=== PATIENT | female | born 1975 | race Caucasian/White ===

== ENCOUNTER 2017-04-03 03:24 | Inpatient (IN) | payer OTHER ==
[2017-04-03] MEDS ORDERED: KETOROLAC TROMETHAMINE INJ/PF 30 MG/1 ML SDV IV ONE (03:58)
[2017-04-03] MEDS ORDERED: MORPHINE SULFATE 10 MG/ML INJ IV ONE (03:58)
[2017-04-03] MEDS ORDERED: NORMAL SALINE 1000 ML 1,000 ML IV ONE (03:59)
--- NOTE | 2017-04-03 04:00 | ER Document Report ---
ED General <PERRY FELDER - Last Filed: 04/03/17 05:43> - General TRAVEL OUTSIDE OF THE [place] IN LAST 30 DAYS: No <ISABEL SALAZAR - Last Filed: 04/03/17 06:36> - General Stated Complaint: ABDOMINAL PAIN Time Seen by Provider: 04/03/17 03:33 Notes: Patient is a 41-year-old female that comes by EMS for chief complaint of sudden onset of left flank and left mid upper abdominal pain that started just prior to arrival. She reports nausea but denies vomiting. She denies fever or chills. She also states that she has a numbness in her left arm with pain in her left arm. She denies any trauma. She does have a past medical history of kidney stones. PMH of gastric bypass and cholecystectomy. Only daily medications or vitamins reportedly. at bedside. (ISABEL SALAZAR) - Related Data Allergies/Adverse Reactions: Penicillins Allergy (Severe, Verified 11/09/13 14:01) difficulting breathing, hives Past Medical History - General Information source: Patient - Social History Smoking Status: Never Smoker Frequency of alcohol use: None Drug Abuse: None Lives with: Family Family History: Reviewed & Not Pertinent - Past Medical History Cardiac Medical History: Reports: Hx Hypercholesterolemia, Hx Hypertension Renal/ Medical History: Reports: Hx Kidney Stones GI Medical History: Reports: Hx Gastroesophageal Reflux Disease Past Surgical History: Reports: Hx Cholecystectomy, Hx Gastric Bypass Surgery - Immunizations Hx Diphtheria, Pertussis, Tetanus Vaccination: Yes <ISABEL SALAZAR - Last Filed: 04/03/17 06:36> Review of Systems - Review of Systems Constitutional: No symptoms reported EENT: No symptoms reported Cardiovascular: No symptoms reported Respiratory: No symptoms reported Gastrointestinal: See HPI Genitourinary: See HPI Female Genitourinary: No symptoms reported Musculoskeletal: No symptoms reported Skin: No symptoms reported Hematologic/Lymphatic: No symptoms reported Neurological/Psychological: No symptoms reported <ISABEL SALAZAR - Last Filed: 04/03/17 06:36> Physical Exam - Vital signs Interpretation: Normal - General General appearance: Anxious In distress: Moderate - HEENT Head: Normocephalic, Atraumatic Eyes: Normal Pupils: PERRL - Respiratory Respiratory status: No respiratory distress Chest status: Nontender Breath sounds: Normal Chest palpation: Normal - Cardiovascular Rhythm: Regular Heart sounds: Normal auscultation Murmur: No - Abdominal Inspection: Normal Distension: No distension Bowel sounds: Normal Tenderness: Tender - Tender in the left abdomen generally, right abdomen is nontender, there is guarding but it is still nonspecific with generalized area Organomegaly: No organomegaly - Back Back: Tender - Tender over the left CVA area generally, right CVA area is nontender - Extremities General upper extremity: Normal inspection, Nontender, Normal ROM, Normal strength General lower extremity: Normal inspection, Nontender, Normal ROM, Normal strength - Neurological Neuro grossly intact: Yes Cognition: Normal Orientation: AAOx4 Marion Coma Scale Eye Opening: Spontaneous Waldron Coma Scale Verbal: Oriented Marion Coma Scale Motor: Obeys Commands Waldron Coma Scale Total: 15 Speech: Normal Motor strength normal: LUE, RUE, LLE, RLE Sensory: Normal - Psychological Associated symptoms: Agitated - Skin Skin Temperature: Warm Skin Moisture: Dry Skin Color: Normal <ISABEL SALAZAR - Last Filed: 04/03/17 06:36> - Vital signs Vitals: Temp Pulse Resp BP Pulse Ox 97.5 F 98 18 132/86 H 100 04/03/17 03:24 04/03/17 03:24 04/03/17 03:24 04/03/17 03:24 04/03/17 03:24 Course - Laboratory Result Diagrams: 04/03/17 03:50 04/03/17 03:50 <PERRY FELDER - Last Filed: 04/03/17 05:43> - Laboratory Result Diagrams: 04/03/17 03:50 04/03/17 03:50 <ISABEL SALAZAR - Last Filed: 04/03/17 06:36> - Re-evaluation Re-evalutation: 04/03/17 05:43 Patient initially seen by physician's botany laboratory assistant. Radiologist: Said there is free air or free fluid in the abdomen. I did go evaluate the patient immediately. She has no pain to palpation of the rest of her abdomen. She has large amount of pain to palpation of the left side of her abdomen. She does have a history of gastric bypass surgery. She denies any fevers. The pain came on suddenly tonight. We will call the surgeon immediately. We will give her antibiotics. She will be placed on monitor. We will treat her pain until surgery can come evaluate help. (PERRY FELDER) Patient initially very uncomfortable, after morphine and Toradol she is much more comfortable although not completely asymptomatic. She has generalized tenderness in her left abdomen, she also has tenderness over the left CVA area. CBC, chemistry unremarkable, urinalysis with no wendie hematuria or infection. Because of patient's large amount of pain and symptoms CAT scan will be performed to further evaluate. CAT scan showing free air in the abdomen concerning for perforated viscus. Dr. Felder evaluated patient at bedside. She is becoming more uncomfortable again on reevaluation. Given additional pain medication, giving Levaquin and Flagyl with penicillin allergy, will consult surgery. 04/03/17 Dr. Friedman evaluated patient at bedside, recommends emergent surgery. They did discuss transfer to [place] but decision was made for surgery here. Patient and state agreement with this plan. 04/03/17 06:30 Patient reevaluated again at bedside, she is much more comfortable although she still has some pain. She will be going straight to the operating room. (ISABEL SALAZAR) - Vital Signs Vital signs: Temp Pulse Resp BP Pulse Ox 97.5 F 98 15 92/60 L 100 04/03/17 03:24 04/03/17 03:24 04/03/17 06:00 04/03/17 06:01 04/03/17 06:00 - Laboratory Laboratory results interpreted by me: 04/03/17 04/03/17 04/03/17 03:50 03:50 04:35 Hgb 11.1 L Hct 34.2 L MCV 79 L MCH 25.7 L RDW 17.5 H Chloride 108 H Urine Blood SMALL H Ur Leukocyte Esterase MODERATE H Discharge <PERRY FELDER - Last Filed: 04/03/17 05:43> - Discharge Admitting Provider: Surgicalist Unit Admitted: OR <ISABEL SALAZAR - Last Filed: 04/03/17 06:36> - Discharge Clinical Impression: Perforated abdominal viscus Condition: Critical Disposition: ADMITTED INPATIENT
[2017-04-03 04:10] LABS: ABSOLUTE EOSINOPHILS # (AUTO) 0.3 10^3/uL (0.0-0.6); ABSOLUTE LYMPHOCYTES (AUTO) 2.6 10^3/uL (0.5-4.7); ABSOLUTE MONOCYTES (AUTO) 0.4 10^3/uL (0.1-1.4); ABSOLUTE NEUT (AUTO) 2.5 10^3/uL (1.7-8.2); BASOPHILS % (AUTO) 0.6 % (0-2); EOSINOPHILS % (AUTO) 5.3 % (0-6); HEMATOCRIT 34.2 % (36.0-47.0); HEMOGLOBIN 11.1 g/dL (12.0-15.5); LYMPHOCYTES % (AUTO) 44.3 % (13-45); MEAN CORPUSCULAR HEMOGLOBIN 25.7 pg (27.0-33.4); MEAN CORPUSCULAR HGB CONC 32.3 g/dL (32.0-36.0); MEAN CORPUSCULAR VOLUME 79 fl (80-97); MONOCYTES % (AUTO) 7.1 % (3-13); PLATELET COUNT 245 10^3/uL (150-450); RED BLOOD COUNT 4.31 10^6/uL (3.72-5.28); RED CELL DISTRIBUTION WIDTH 17.5 % (11.5-14.0); SEGMENTED NEUTROPHILS % (AUTO) 42.7 % (42-78); TOTAL CELLS COUNTED % (AUTO) 100 %; WHITE BLOOD COUNT 5.8 10^3/uL (4.0-10.5)
[2017-04-03 04:30] LABS: ALANINE AMINOTRANSFERASE 25 U/L (9-52); ALBUMIN 3.7 g/dL (3.5-5.0); ALKALINE PHOSPHATASE 66 U/L (38-126); ANION GAP 7 (5-19); ASPARTATE AMINO TRANSFERASE 22 U/L (14-36); BILIRUBIN,DIRECT 0.2 mg/dL (0.0-0.4); BILIRUBIN,TOTAL 0.3 mg/dL (0.2-1.3); BLOOD UREA NITROGEN 9 mg/dL (7-20); CALCIUM 8.8 mg/dL (8.4-10.2); CARBON DIOXIDE 26 mmol/L (22-30); CHLORIDE 108 mmol/L (98-107); GLUCOSE 90 mg/dL (75-110); POTASSIUM 4.6 mmol/L (3.6-5.0); SODIUM 141.3 mmol/L (137-145); TOTAL PROTEIN 6.4 g/dL (6.3-8.2)
[2017-04-03 04:54] LABS: AMORPHOUS SEDIMENT,URINE TRACE /HPF; APPEARANCE,URINE SLIGHTLY-CLOUDY; BILIRUBIN,URINE NEGATIVE (NEGATIVE); COLOR,URINE YELLOW; GLUCOSE, URINE NEGATIVE (NEGATIVE); KETONES,URINE NEGATIVE (NEGATIVE); LEUKOCYTE ESTERASE,URINE MODERATE (NEGATIVE); NITRITE,URINE NEGATIVE (NEGATIVE); PROTEIN,URINE NEGATIVE (NEGATIVE); URINE SPECIFIC GRAVITY 1.009; UROBILINOGEN,URINE NEGATIVE mg/dL (<2.0)
[2017-04-03] MEDS ORDERED: LEVOFLOXACIN 750 MG/D5W RTU 750 MG/150 ML RTUPB IV ONE (05:43)
[2017-04-03] MEDS ORDERED: METRONIDAZOLE 500 MG/NS RTU 100 ML IV ONE (05:43)
--- NOTE | 2017-04-03 05:45 | RADIOLOGY REPORT (SQ) ---
EXAM DESCRIPTION: CT LTD RENAL STONE PROTOCOL ON COMPLETED DATE/TIME: 04/03/2017 5:18 am REASON FOR STUDY: left flank pain, abd pain COMPARISON: None. TECHNIQUE: CT scan of the abdomen and pelvis performed without intravenous or oral contrast. Images reviewed with lung, soft tissue, and bone windows. Reconstructed coronal and sagittal MPR images revi ewed. All images stored on PACS. All CT scanners at this facility use dose modulation, iterative reconstruction, and/or weight based d osing when appropriate to reduce radiation dose to as low as reasonably achievable (ALARA). [facility]: Dose Right [facility]: CareDose [facility]: Dose Right [facility]: Teradose 4D [facility]: Smart Tactiga RADIATION DOSE: Up-to-date CT equipment and radiation dose reduction techniques were employed. CTDIv ol: 11.1 mGy. DLP: 597 mGy-cm.mGy. LIMITATIONS: None. FINDINGS: LOWER CHEST: No significant findings. No nodules or infiltrates. NON-CONTRASTED LIVER, SPLEEN, ADRENALS: Evaluation limited by lack of IV contrast. No identified sign ificant masses. PANCREAS: No masses. No peripancreatic inflammatory changes. GALLBLADDER: Surgically absent. RIGHT KIDNEY AND URETER: No suspicious masses. Assessment limited by lack of IV contrast. No signif icant calcifications. No hydronephrosis or hydroureter. LEFT KIDNEY AND URETER: No suspicious masses. Assessment limited by lack of IV contrast. No signifi cant calcifications. No hydronephrosis or hydroureter. AORTA AND RETROPERITONEUM: No aneurysm. No retroperitoneal masses or adenopathy. BOWEL AND PERITONEAL CAVITY: Prior gastric bypass. There is generalize free intraperitoneal air. Et iology not determined. APPENDIX: Normal. PELVIS, BLADDER, AND ABDOMINAL WALL:No abnormal masses. No free fluid. Bladder normal. BONES: No significant findings. OTHER: No other significant finding. IMPRESSION: Free intraperitoneal air. Suggests perforated viscus. Fluid around the liver and generally in the pelvis. COMMENT: Pertinent findings on the imaging study reported as a CRITICAL RESULT to weiner at05:39 o n 04/03/2017. Category of Critical Result: Free intraperitoneal air. Quality ID # [id number]: Final reports with documentation of one or more dose reduction techniques (e.g., Au tomated exposure control, adjustment of the mA and/or kV according to patient size, use of iterative reconstruction technique) TECHNICAL DOCUMENTATION: JOB ID: [id number] [facility] [employer]- All Rights Reserved
[2017-04-03] MEDS ORDERED: HYDROMORPHONE HCL INJ/PF 2 MG/ML AMPULE IV ONE (05:48)
[2017-04-03] MEDS ORDERED: ONDANSETRON HCL INJ/PF 4 MG/2 ML SDV IV ONE (06:04)
[2017-04-03] MEDS ORDERED: PROPOFOL INJ 200 MG/20 ML VIAL IV ONE (06:34)
[2017-04-03] MEDS ORDERED: MIDAZOLAM 2 MG/2 ML INJ ONE (06:34)
[2017-04-03] MEDS ORDERED: IBUPROFEN INJ 800 MG/8 ML VIAL IV ONE (06:34)
[2017-04-03] MEDS ORDERED: FENTANYL CITRATE INJ/PF 250 MCG/5 ML AMPULE ONE (06:34)
[2017-04-03] MEDS ORDERED: ACETAMINOPHEN 100 ML IV ONE (06:34)
[2017-04-03] MEDS ORDERED: HYDROMORPHONE HCL INJ/PF 2 MG/ML AMPULE ONE ×2 (06:35→10:30)
--- NOTE | 2017-04-03 06:40 | PDOC H&P ---
History of Present Illness Admission Date/PCP: 04/03/2017 Patient complains of: Severe diffuse abdominal pains History of Present Illness: KEENA GOMEZ is a 41 year old female Patient woke up at 230 this morning with severe abdominal pains with nausea. She immediately went to the emergency room where a CAT scan of the abdomen was done which showed free air likely from a perforated bowel. Unfortunately the radiologist unable to localize the site of the perforation. Past Medical History Cardiac Medical History: Reports: Hyperlipidema, Hypertension GI Medical History: Reports: Gastroesophageal Reflux Disease Hematology: Denies: Anemia Past Surgical History Past Surgical History: Reports: Cholecystectomy, Gastric Bypass Surgery Social History Smoking Status: Never Smoker Frequency of Alcohol Use: Occasional Hx Recreational Drug Use: No Family History Family History: Reviewed & Not Pertinent Parental Family History Reviewed: Yes - Both parents due to [place] Children Family History Reviewed: No Sibling(s) Family History Reviewed.: No Medication/Allergy Home Medications: Hydrochlorothiazide 25 mg PO DAILY 11/09/13 Simvastatin [Zocor 20 mg Tablet] 20 mg PO QHS 11/09/13 Methocarbamol [Robaxin 750 mg Tablet] 750 mg PO ASDIR PRN #40 tablet 11/10/13 Oxycodone HCl/Acetaminophen [Percocet 5-325 mg Tablet] 1 - 2 tab PO Q4H PRN #25 tablet 11/10/13 Ondansetron [Zofran Odt 4 mg Tablet] 1 - 2 tab PO Q4H PRN #10 tab.rapdis Oxycodone HCl/Acetaminophen [Percocet 5-325 mg Tablet] 1 - 2 tab PO Q4H PRN #15 tablet 05/03/15 Allergies/Adverse Reactions: Penicillins Allergy (Severe, Verified 11/09/13 14:01) difficulting breathing, hives Review of Systems Constitutional: PRESENT: other - Denies any fever or chills. Eyes: PRESENT: other - No visual or hearing problems Cardiovascular: PRESENT: other - Denies any chest pain Respiratory: PRESENT: other - Denies short of breath Gastrointestinal: PRESENT: as per HPI - Has severe diffuse abdominal pains with nausea Genitourinary: PRESENT: other - No dysuria Musculoskeletal: PRESENT: other - No joint pain Integumentary: PRESENT: other - No rash Neurological: PRESENT: other - No seizure disorder Endocrine: PRESENT: other - Polyuria no polydipsia Hematologic/Lymphatic: PRESENT: other - No easy bruisability or lymphadenopathy Physical Exam Vital Signs: Temp Pulse Resp BP Pulse Ox 97.5 F 98 15 92/60 L 100 04/03/17 03:24 04/03/17 03:24 04/03/17 06:00 04/03/17 06:01 04/03/17 06:00 Intake & Output 04/01/17 04/02/17 04/03/17 06:59 06:59 06:59 Weight 70.307 kg General appearance: PRESENT: severe distress Head exam: PRESENT: atraumatic, normocephalic Eye exam: PRESENT: conjunctiva pink Ear exam: PRESENT: normal external ear exam Mouth exam: PRESENT: moist, tongue midline Neck exam: PRESENT: full ROM Respiratory exam: PRESENT: clear to auscultation danica Cardiovascular exam: PRESENT: tachycardia Pulses: PRESENT: normal carotid pulses Vascular exam: PRESENT: normal capillary refill GI/Abdominal exam: PRESENT: soft, tenderness - Diffuse abdominal tenderness patient felt more comfortable lying on her right side. Patient unable to completely lie flat on her back because of severe pains Rectal exam: PRESENT: deferred Extremities exam: PRESENT: other - No edema Musculoskeletal exam: PRESENT: full ROM Neurological exam: PRESENT: alert, oriented to person, oriented to place, oriented to time, oriented to situation, CN II-XII grossly intact Psychiatric exam: PRESENT: appropriate affect Skin exam: PRESENT: dry, normal color, warm Results Laboratory Results: 04/03/17 03:50 04/03/17 03:50 04/03/17 04/03/17 04/03/17 03:50 03:50 04:35 WBC 5.8 RBC 4.31 Hgb 11.1 L Hct 34.2 L MCV 79 L MCH 25.7 L MCHC 32.3 RDW 17.5 H Plt Count 245 Seg Neutrophils % 42.7 Lymphocytes % 44.3 Monocytes % 7.1 Eosinophils % 5.3 Basophils % 0.6 Absolute Neutrophils 2.5 Absolute Lymphocytes 2.6 Absolute Monocytes 0.4 Absolute Eosinophils 0.3 Absolute Basophils 0.0 Sodium 141.3 Potassium 4.6 Chloride 108 H Carbon Dioxide 26 Anion Gap 7 BUN 9 Creatinine 0.85 Est GFR ( Amer) > 60 Est GFR (Non-Af Amer) > 60 Glucose 90 Calcium 8.8 Total Bilirubin 0.3 AST 22 ALT 25 Alkaline Phosphatase 66 Total Protein 6.4 Albumin 3.7 Urine Color YELLOW Urine Appearance SLIGHTLY-CLOUDY Urine pH 7.0 Ur Specific Maskell 1.009 Urine Protein NEGATIVE Urine Glucose (UA) NEGATIVE Urine Ketones NEGATIVE Urine Blood SMALL H Urine Nitrite NEGATIVE Ur Leukocyte Esterase MODERATE H Urine WBC (Auto) 1 04/03/17 03:50 Troponin I < 0.012 Impressions: Limited or Localized CT 04/03/17 03:59 IMPRESSION: Free intraperitoneal air. Suggests perforated viscus. Fluid around the liver and generally in the pelvis. Assessment & Plan - Time Time Spent: 30 to 50 Minutes - Inpatient Certification Medical Necessity: Need for Pain Control, Need for IV Antibiotics, Need for Surgery - Plan Summary Plan Summary: #1 patient is being hydrated and started on IV antibiotics 2. Patient for exploratory laparotomy and repair of perforation and possible colostomy. This was explained to the patient and her and risks mentioned such as bleeding, infection, bowel injury and risk of anesthesia among other things
[2017-04-03] MEDS ORDERED: FENTANYL CITRATE INJ/PF 100 MCG/2 ML AMPUL IV PRN ×3 (08:44)
[2017-04-03] MEDS ORDERED: MEPERIDINE HCL/PF INJ 25 MG/1 ML DISP.SYRIN IV PRN (08:44)
[2017-04-03] MEDS ORDERED: ONDANSETRON HCL INJ/PF 4 MG/2 ML SDV IV PRN (08:44)
[2017-04-03] MEDS ORDERED: OXYCODONE-ACETAMINOPHEN 5-325 MG TABLET PO PRN ×2 (08:44)
[2017-04-03] MEDS ORDERED: PROMETHAZINE HCL INJ 25 MG/1 ML VIAL IV PRN ×2 (08:44)
[2017-04-03] MEDS ORDERED: MORPHINE SULFATE 10 MG/ML INJ IV PRN (08:44)
[2017-04-03] MEDS ORDERED: DIPHENHYDRAMINE HCL 50 MG/ML VIAL IV PRN (08:44)
[2017-04-03] MEDS ORDERED: ROCURONIUM BROMIDE INJ 50 MG/5 ML VIAL IV ONE (08:57)
[2017-04-03] MEDS ORDERED: PHENYLEPHRINE HCL INJ/PF 10 MG/1 ML SDV ONE (08:57)
[2017-04-03] MEDS ORDERED: SUCCINYLCHOLINE CHLORIDE INJ 200 MG/10 ML VIAL ONE (08:57)
[2017-04-03] MEDS ORDERED: ONDANSETRON HCL INJ/PF 4 MG/2 ML SDV ONE (08:57)
[2017-04-03] MEDS ORDERED: LIDOCAINE 2% INJ-PF (20 MG/ML) 10 ML AMPUL ONE (08:57)
[2017-04-03] MEDS ORDERED: DEXAMETHASONE SOD PHOSPHATE INJ 4 MG/1 ML VIAL ONE (08:57)
[2017-04-03] MEDS ORDERED: DEXTROSE 50%-WATER 25 GM/50 ML DISP.SYRIN IV PRN ×2 (09:43)
[2017-04-03] MEDS ORDERED: DEXTROSE 40% GEL 15 GM TUBE PO PRN ×2 (09:43)
[2017-04-03] MEDS ORDERED: GLUCAGON,HUMAN RECOMB 1 MG INJ SUBCUT PRN (09:43)
[2017-04-03] MEDS ORDERED: PHARMACY COMMUNICATION ORDER MC NR (10:00)
--- NOTE | 2017-04-03 11:13 | OPERATIVE REPORT E ---
Operative Report NAME: KEENA GOMEZ : 1975 AGE: 41Y DATE OF SURGERY: ROOM: 601 PREOPERATIVE DIAGNOSIS: PERFORATED BOWEL WITH PERITONITIS. POSTOPERATIVE DIAGNOSIS: PERFORATED JEJUNAL ULCER AT THE JUNCTION OF THE GASTROJEJUNAL ANASTOMOSIS WITH PERITONITIS. OPERATION: Exploratory laparotomy, repair of perforated jejunal ulcer with omental patch. SURGEON: JAMAL WEATHERS M.D. ANESTHESIA: General. INDICATION: This is a 41-year-old female post gastric bypass, complained of severe diffuse abdominal pain around 11:00 last night. She went to the Emergency Room where a CAT scan of the abdomen revealed a perforated bowel. Unfortunately, unable to identify the potential source. Patient was then taken to the OR immediately. PROCEDURE: After adequate general anesthesia, the abdomen was then prepped and draped in the usual sterile fashion. Appropriate timeout was called. Next, a midline incision made from the xiphoid down to just below the umbilicus. Abdominal cavity was then entered and there was a lot of purulent material noted along the right upper quadrant area. This was then suctioned out, but fortunately, no evidence of inflammation around this site where the site of the duodenum is. There were omental adhesions to the liver that were taken down with the use of Harmonic roni. Next, there was some light purulent material in the right lower quadrant and the incision was then extended further down and just above the symphysis pubis and this area was then irrigated and, again, no evidence of perforation, but there was a considerable amount of purulent material and exudate. Exudate was sent for C and S. Next, the left lower quadrant was checked and, again, no evidence of any inflammation or perforation at this site. Finally, in the left upper quadrant, an area that appeared to be at the junction of the gastrojejunal anastomosis, there was a perforation, appeared to be the jejunal side, which was partly plastered to the liver. The perforation roughly measured about 1 cm. Next, this area was closed with interrupted 2-0 silk sutures. About 4 sutures were placed. Next, omentum was sutured around it using 2-0 Vicryl sutures. An NG tube was placed in the jejunum of the gastrojejunal anastomosis. Next, the abdominal cavity was then irrigated copiously with about 6L of saline. The small bowel was checked from the ligament of Treitz to the ileocecal valve and no evidence of abnormality. Also, the large bowel was also inspected and no evidence of abnormality other than the cecum was widely dilated to about 8 cm. Appendix was left intact. No evidence of inflammation at this site. Next, the fascia was then closed with running suture using #1 PDS, starting at both ends of the incision and tied just above the umbilicus. The subcutaneous was then irrigated with saline solution and surgical gloves were changed. Next, the skin was then closed with funmilayo. Sterile dressings placed over the operating site. Prior to closure of the fascia, a Juan David-Lawson drain was brought out through the left upper quadrant and placed near the area of the perforation. Drain was anchored to the skin with 3-0 Prolene. After the funmilayo were placed, sterile dressings were placed on top of the incision. Needle, instrument and sponge counts were all correct, and estimated blood loss about 200 mL. The patient tolerated the procedure well and brought to the intensive care unit in guarded condition. DICTATING PHYSICIAN: JAMAL WEATHERS M.D. [id number] PHY#: [id number] ID: [id number] JOB#: [id number] ACCT: [id number] cc:JAMAL WEATHERS M.D. > MTDD
[2017-04-03] MEDS: METRONIDAZOLE 500 MG/NS RTU 100 ML IV SCH ×3 (11:29→23:58)
[2017-04-03] MEDS: FAMOTIDINE INJ/PF 20 MG/2 ML SDV IV SCH ×2 (11:29→22:32)
[2017-04-03] MEDS: ENOXAPARIN SODIUM INJ 40 MG/0.4 ML DISP.SYRIN SUBCUT SCH (11:30)
--- NOTE | 2017-04-03 11:41 | EKG REPORT ---
SEVERITY:- NORMAL ECG - SINUS RHYTHM : Confirmed by: Gio Valdez 03-Apr-2017 11:41:31
[2017-04-03] MEDS ORDERED: INFLUENZA ADLT QUAD (36MOS+) 2017-18 VAC 0.5 ML SYR IM PRN (12:48)
[2017-04-03] MEDS: HYDROMORPHONE HCL INJ/PF 2 MG/ML AMPULE IV PRN ×2 (14:24→19:39)
--- NOTE | 2017-04-03 15:47 | RADIOLOGY REPORT (SQ) ---
EXAM DESCRIPTION: KUB/ABDOMEN (SINGLE VIEW) COMPLETED DATE/TIME: 04/03/2017 2:31 pm REASON FOR STUDY: Check Placement of NG Tube COMPARISON: CT abdomen pelvis 04/03/2017 NUMBER OF VIEWS: One view. TECHNIQUE: Supine radiographic image of the abdomen acquired. LIMITATIONS: None. FINDINGS: BOWEL GAS PATTERN: Grossly nonobstructive bowel gas pattern. Moderate stool in the ascend ing colon. CALCIFICATIONS: No suspicious calcifications. SOFT TISSUES: No gross mass or suggestion of organomegaly. HARDWARE: Remote prior gastric bypass with left upper quadrant surgical funmilayo. There is a nasogast tyler tube with the tip likely in the gastric fundal pouch and side port at the GE junction. Left uppe r quadrant Juan David-Lawson drain. Midline anterior abdominal skin funmilayo. Clips post remote prior ch olecystectomy. BONES: No acute fracture. No worrisome bone lesions. OTHER: No other significant finding. IMPRESSION: Nasogastric tube tip in the stomach, side port at the GE junction Left upper quadrant Juan David-Lawson drain Grossly nonobstructive bowel gas pattern with moderate stool in the ascending colon Old gastric bypass and cholecystectomy TECHNICAL DOCUMENTATION: JOB ID: [id number] [employer]- All Rights Reserved
[2017-04-03] MEDS: NORMAL SALINE 1000 ML 1,000 ML IV PRN (16:04)
[2017-04-03] MEDS: ONDANSETRON HCL INJ/PF 4 MG/2 ML SDV IV PRN (17:20)
[2017-04-04] MEDS: HYDROMORPHONE HCL INJ/PF 2 MG/ML AMPULE IV PRN ×2 (00:31→08:00)
[2017-04-04 04:16] LABS: ABSOLUTE MONOCYTES (AUTO) 0.7 10^3/uL (0.1-1.4); BASOPHILS % (AUTO) 0.2 % (0-2); EOSINOPHILS % (AUTO) 0.3 % (0-6); HEMOGLOBIN 10.1 g/dL (12.0-15.5); LYMPHOCYTES % (AUTO) 9.3 % (13-45); MEAN CORPUSCULAR HEMOGLOBIN 25.7 pg (27.0-33.4); MEAN CORPUSCULAR HGB CONC 32.5 g/dL (32.0-36.0); MEAN CORPUSCULAR VOLUME 79 fl (80-97); MONOCYTES % (AUTO) 6.9 % (3-13); PLATELET COUNT 191 10^3/uL (150-450); RED BLOOD COUNT 3.92 10^6/uL (3.72-5.28); RED CELL DISTRIBUTION WIDTH 17.2 % (11.5-14.0); SEGMENTED NEUTROPHILS % (AUTO) 83.3 % (42-78); TOTAL CELLS COUNTED % (AUTO) 100 %; WHITE BLOOD COUNT 10.9 10^3/uL (4.0-10.5)
[2017-04-04 04:29] LABS: ALANINE AMINOTRANSFERASE 45 U/L (9-52); ALBUMIN 2.8 g/dL (3.5-5.0); ALKALINE PHOSPHATASE 50 U/L (38-126); ANION GAP 9 (5-19); ASPARTATE AMINO TRANSFERASE 32 U/L (14-36); BILIRUBIN,DIRECT 0.2 mg/dL (0.0-0.4); BILIRUBIN,TOTAL 0.4 mg/dL (0.2-1.3); BLOOD UREA NITROGEN 10 mg/dL (7-20); CALCIUM 8.3 mg/dL (8.4-10.2); CARBON DIOXIDE 23 mmol/L (22-30); CHLORIDE 110 mmol/L (98-107); GLUCOSE 101 mg/dL (75-110); LIPASE 35.8 U/L (23-300); SODIUM 141.7 mmol/L (137-145); TOTAL PROTEIN 5.1 g/dL (6.3-8.2)
[2017-04-04] MEDS: METRONIDAZOLE 500 MG/NS RTU 100 ML IV SCH ×4 (05:30→23:32)
[2017-04-04] MEDS: LEVOFLOXACIN 750 MG/D5W RTU 750 MG/150 ML RTUPB IV SCH (05:31)
[2017-04-04] MEDS: ONDANSETRON HCL INJ/PF 4 MG/2 ML SDV IV PRN (08:00)
[2017-04-04] MEDS: FAMOTIDINE INJ/PF 20 MG/2 ML SDV IV SCH ×2 (09:43→21:15)
[2017-04-04] MEDS: ENOXAPARIN SODIUM INJ 40 MG/0.4 ML DISP.SYRIN SUBCUT SCH (09:44)
[2017-04-04] MEDS: KETOROLAC TROMETHAMINE INJ/PF 30 MG/1 ML SDV IV PRN ×2 (09:49→17:27)
[2017-04-04] MEDS ORDERED: SUMATRIPTAN SUCCINATE 50 MG TABLET PO PRN (11:28)
[2017-04-04] MEDS: PROMETHAZINE HCL INJ 25 MG/1 ML VIAL IV PRN (12:07)
[2017-04-04] MEDS: NORMAL SALINE 1000 ML 1,000 ML IV PRN (15:42)
--- NOTE | 2017-04-04 20:11 | PDOC PROGRESS REPORT ---
Subjective Progress Note for:: 04/04/17 Subjective:: #1 patient does not have the same pains that she had prior to surgery. She does have some mild incisional pains. She is more concerned about her headaches which she usually takes Imitrex for this. I asked the nurse if they can have a Imitrex available so this can be given to the patient. Physical Exam Vital Signs: Temp Pulse Resp BP Pulse Ox 97.7 F 102 H 18 117/79 100 04/04/17 08:00 04/04/17 08:00 04/04/17 18:24 04/04/17 18:24 04/04/17 18:24 Intake & Output 04/03/17 04/04/17 04/05/17 07:59 06:59 06:59 Intake Total 1657 Output Total 1540 Balance 117 Weight General appearance: PRESENT: no acute distress Exam: She remains afebrile. Her abdomen remains soft with minimal tenderness. Incision dressing is clean and dry. The NG tube and drains a small amount of fluid. 2. Continue with IV antibiotic therapy. 3. If she continues to be stable she can be transferred to the IMCU. Results Laboratory Results: 04/04/17 04:06 04/04/17 04:06 04/04/17 04/04/17 04:06 04:06 WBC 10.9 H RBC 3.92 Hgb 10.1 L Hct 31.0 L MCV 79 L MCH 25.7 L MCHC 32.5 RDW 17.2 H Plt Count 191 Seg Neutrophils % 83.3 H Lymphocytes % 9.3 L Monocytes % 6.9 Eosinophils % 0.3 Basophils % 0.2 Absolute Neutrophils 9.0 H Absolute Lymphocytes 1.0 Absolute Monocytes 0.7 Absolute Eosinophils 0.0 Absolute Basophils 0.0 Sodium 141.7 Potassium 4.0 Chloride 110 H Carbon Dioxide 23 Anion Gap 9 BUN 10 Creatinine 0.72 Est GFR ( Amer) > 60 Est GFR (Non-Af Amer) > 60 Glucose 101 Calcium 8.3 L Total Bilirubin 0.4 AST 32 ALT 45 Alkaline Phosphatase 50 Total Protein 5.1 L Albumin 2.8 L Lipase 35.8 Impressions: Limited or Localized CT 04/03/17 03:59 IMPRESSION: Free intraperitoneal air. Suggests perforated viscus. Fluid around the liver and generally in the pelvis. KUB X-Ray 04/03/17 10:01 IMPRESSION: Nasogastric tube tip in the stomach, side port at the GE junction Left upper quadrant Juan David-Lawson drain Grossly nonobstructive bowel gas pattern with moderate stool in the ascending colon Old gastric bypass and cholecystectomy Assessment & Plan - Inpatient Certification Medical Necessity: Need For IV Fluids, Need for Pain Control, Need for IV Antibiotics
[2017-04-04] MEDS ORDERED: SUMATRIPTAN SUCCINATE 100 MG TABLET ONE (20:50)
[2017-04-04] MEDS ORDERED: SUMATRIPTAN SUCCINATE 100 MG TABLET PO ONE (21:00)
[2017-04-04] MEDS ORDERED: MORPHINE SULFATE 10 MG/ML INJ ONE (21:04)
[2017-04-05] MEDS: LEVOFLOXACIN 750 MG/D5W RTU 750 MG/150 ML RTUPB IV SCH (05:24)
[2017-04-05] MEDS: KETOROLAC TROMETHAMINE INJ/PF 30 MG/1 ML SDV IV PRN ×2 (05:25→17:07)
[2017-04-05] MEDS: METRONIDAZOLE 500 MG/NS RTU 100 ML IV SCH ×4 (05:25→23:08)
[2017-04-05] MEDS: PROMETHAZINE HCL INJ 25 MG/1 ML VIAL IV PRN ×2 (05:25→11:51)
[2017-04-05 06:55] LABS: HEMATOCRIT 27.7 % (36.0-47.0); HEMOGLOBIN 9.1 g/dL (12.0-15.5); MEAN CORPUSCULAR HEMOGLOBIN 26.1 pg (27.0-33.4); MEAN CORPUSCULAR HGB CONC 32.9 g/dL (32.0-36.0); MEAN CORPUSCULAR VOLUME 79 fl (80-97); PLATELET COUNT 182 10^3/uL (150-450); RED CELL DISTRIBUTION WIDTH 17.7 % (11.5-14.0); WHITE BLOOD COUNT 8.4 10^3/uL (4.0-10.5)
[2017-04-05 07:19] LABS: ANION GAP 6 (5-19); BLOOD UREA NITROGEN 8 mg/dL (7-20); CALCIUM 8.4 mg/dL (8.4-10.2); CARBON DIOXIDE 25 mmol/L (22-30); CHLORIDE 111 mmol/L (98-107); GLUCOSE 95 mg/dL (75-110); POTASSIUM 3.8 mmol/L (3.6-5.0)
[2017-04-05] MEDS ORDERED: SUMATRIPTAN SUCCINATE 50 MG TABLET NG PRN (08:00)
[2017-04-05] MEDS ORDERED: DEXTROSE 40% GEL 15 GM TUBE NG PRN ×2 (08:00)
--- NOTE | 2017-04-05 09:28 | PDOC PROGRESS REPORT ---
Subjective Progress Note for:: 04/05/17 Subjective:: Patient is having some abdominal pain, migraine headache. She has remained at bed rest. She remains hemodynamically stable, in the intensive care unit. Physical Exam Vital Signs: Temp Pulse Resp BP Pulse Ox 99.0 F 103 H 20 121/88 H 99 04/05/17 08:00 04/05/17 08:00 04/05/17 08:00 04/05/17 08:00 04/05/17 08:00 Intake & Output 04/04/17 04/05/17 04/06/17 06:59 06:59 06:59 Intake Total 4106 Output Total 208 400 Balance 2025 - Weight 83.9 kg General appearance: PRESENT: mild distress Head exam: PRESENT: normocephalic GI/Abdominal exam: PRESENT: other - Abdomen is soft, midline dressing removed funmilayo intact. Serosanguineous drainage from the intra-abdominal drain. Results Laboratory Results: 04/05/17 06:38 04/05/17 06:38 04/05/17 04/05/17 06:38 06:38 WBC 8.4 RBC 3.50 L Hgb 9.1 L Hct 27.7 L MCV 79 L MCH 26.1 L MCHC 32.9 RDW 17.7 H Plt Count 182 Sodium 142.0 Potassium 3.8 Chloride 111 H Carbon Dioxide 25 Anion Gap 6 BUN 8 Creatinine 0.71 Est GFR ( Amer) > 60 Est GFR (Non-Af Amer) > 60 Glucose 95 Calcium 8.4 Impressions: Limited or Localized CT 04/03/17 03:59 IMPRESSION: Free intraperitoneal air. Suggests perforated viscus. Fluid around the liver and generally in the pelvis. KUB X-Ray 04/03/17 10:01 IMPRESSION: Nasogastric tube tip in the stomach, side port at the GE junction Left upper quadrant Juan David-Lawson drain Grossly nonobstructive bowel gas pattern with moderate stool in the ascending colon Old gastric bypass and cholecystectomy Assessment & Plan - Diagnosis (1) Perforated abdominal viscus Is this a current diagnosis for this admission?: Yes Plan: Patient is 2 days status post exploratory laparotomy, closure of anal ulcer perforation at the gastrojejunal anastomosis doing well, hemodynamically stable , no complications thus far. Plan: 1. Out of bed to chair; abdominal binder; aggressive pulmonary toilet 2. Continue intravenous antibiotics for 24 more hours. 3. Obtain swallow study tomorrow morning; if no leak, DC naso-jejunal tube. 4. Anticipate transfer to floor later today or tomorrow
[2017-04-05] MEDS: NORMAL SALINE 1000 ML 1,000 ML IV PRN ×2 (09:53→22:12)
[2017-04-05] MEDS: MORPHINE SULFATE 10 MG/ML INJ IV PRN ×2 (09:53→23:08)
[2017-04-05] MEDS: FAMOTIDINE INJ/PF 20 MG/2 ML SDV IV SCH ×2 (09:53→22:12)
[2017-04-05] MEDS: ENOXAPARIN SODIUM INJ 40 MG/0.4 ML DISP.SYRIN SUBCUT SCH (09:54)
[2017-04-05] MEDS ORDERED: ALPRAZOLAM 0.5 MG TABLET NG ONE (19:30)
[2017-04-06] MEDS: LEVOFLOXACIN 750 MG/D5W RTU 750 MG/150 ML RTUPB IV SCH (05:09)
[2017-04-06] MEDS: METRONIDAZOLE 500 MG/NS RTU 100 ML IV SCH ×4 (05:09→23:48)
[2017-04-06] MEDS: KETOROLAC TROMETHAMINE INJ/PF 30 MG/1 ML SDV IV PRN ×2 (06:20→16:01)
[2017-04-06] MEDS: ONDANSETRON HCL INJ/PF 4 MG/2 ML SDV IV PRN ×2 (09:24→18:18)
--- NOTE | 2017-04-06 09:34 | RADIOLOGY REPORT (SQ) ---
EXAM DESCRIPTION: UGI SERIES COMPLETED DATE/TIME: 04/06/2017 9:08 am REASON FOR STUDY: r/o leak s/p repair uler at G-J Jx COMPARISON: None. TECHNIQUE: Under fluoroscopic guidance, water-soluble contrast was injected through the patient's pr e-existing nasogastric tube. Fluoroscopic spot images and routine radiographic images acquired and s tored on PACS. 12 MM BARIUM TABLET GIVEN: No LIMITATIONS: None. FLUOROSCOPY TIME: FLUORO TIME: 3.2 minutes 12 series of digital images saved to PACS. FINDINGS: Patient had a perforated ulcer at the gastrojejunostomy, several years after Brandie-en-Y gas tric bypass. Operatively, during repair of the ulcer nasogastric tube was placed with the tip in the efferrent loo p and side port in the gastric fundal pouch. Contrast was injected through the tube, with mild reflu x of contrast into the distal esophagus. The gastric fundal pouch is normal in size, there is brisk movement of contrast into the efferent loop without evidence of delayed fundal pouch emptying. No le akage of contrast at the gastrojejunostomy. There are midline anterior abdominal wall surgical funmilayo, left upper quadrant Juan David-Lawson drain, and right upper quadrant clips post cholecystectomy. Results discussed with Dr. Cantor IMPRESSION: No extravasation of contrast from the patient's gastric bypass anastomosis. No delayed gastric emptying. COMMENT: Quality ID [id number]: Final reports for procedures using fluoroscopy that document radiation exp osure indices, or exposure time and number of fluorographic images (if radiation exposure indices are not available) TECHNICAL DOCUMENTATION: JOB ID: [id number] [employer]- All Rights Reserved
[2017-04-06] MEDS: ENOXAPARIN SODIUM INJ 40 MG/0.4 ML DISP.SYRIN SUBCUT SCH (10:09)
[2017-04-06] MEDS: FAMOTIDINE INJ/PF 20 MG/2 ML SDV IV SCH ×2 (10:09→21:33)
[2017-04-06] MEDS: MORPHINE SULFATE 10 MG/ML INJ IV PRN ×2 (10:59→19:50)
[2017-04-06] MEDS: NORMAL SALINE 1000 ML 1,000 ML IV PRN ×2 (11:00→21:33)
--- NOTE | 2017-04-06 12:14 | PDOC PROGRESS REPORT ---
Subjective Progress Note for:: 04/06/17 Physical Exam Vital Signs: Temp Pulse Resp BP Pulse Ox 98.4 F 95 19 134/91 H 93 04/06/17 08:00 04/06/17 08:46 04/06/17 10:00 04/06/17 08:00 04/06/17 10:00 Intake & Output 04/05/17 04/06/17 04/07/17 06:59 06:59 06:59 Intake Total 4106 2379 Output Total 2080 6775 445 Balance 2025 -126 -445 Weight 83.9 kg 82.8 kg Exam: Awake, alert, oriented. NG-tube in place Lungs: Clear Cardiovascular: Regular rate Abdomen: Soft, nontender. Midline incision healing well without evidence of infection. GALE with serosanguineous drainage. Results Laboratory Results: 04/05/17 06:38 04/05/17 06:38 Impressions: Limited or Localized CT 04/03/17 03:59 IMPRESSION: Free intraperitoneal air. Suggests perforated viscus. Fluid around the liver and generally in the pelvis. KUB X-Ray 04/03/17 10:01 IMPRESSION: Nasogastric tube tip in the stomach, side port at the GE junction Left upper quadrant Juan David-Lawson drain Grossly nonobstructive bowel gas pattern with moderate stool in the ascending colon Old gastric bypass and cholecystectomy Upper GI Series 04/06/17 08:00 IMPRESSION: No extravasation of contrast from the patient's gastric bypass anastomosis. No delayed gastric emptying. Assessment & Plan - Diagnosis (1) Perforated abdominal viscus Is this a current diagnosis for this admission?: Yes Plan: Status post repair of jejunal perforation. Contrast noted this morning is negative for leak. No strictures identified. She is clinically stable and is having no abdominal pain. I will remove her NG tube and offer clear liquids. - Time Time Spent with patient: 15-24 minutes
[2017-04-06] MEDS ORDERED: ACETAMINOPHEN 325 MG TABLET PO PRN (19:46)
[2017-04-07] MEDS: METRONIDAZOLE 500 MG/NS RTU 100 ML IV SCH ×3 (05:04→19:24)
[2017-04-07] MEDS: LEVOFLOXACIN 750 MG/D5W RTU 750 MG/150 ML RTUPB IV SCH (05:05)
[2017-04-07] MEDS: KETOROLAC TROMETHAMINE INJ/PF 30 MG/1 ML SDV IV PRN ×2 (05:07→19:24)
[2017-04-07] MEDS ORDERED: ACETAMINOPHEN 325 MG TABLET NG PRN (08:00)
[2017-04-07] MEDS: ONDANSETRON HCL INJ/PF 4 MG/2 ML SDV IV PRN ×2 (08:15→13:15)
--- NOTE | 2017-04-07 09:16 | PDOC PROGRESS REPORT ---
Subjective Progress Note for:: 04/07/17 Subjective:: Postop day 4 status post repair of perforation at the gastrojejunostomy. Contrast study yesterday revealed no evidence of leak. She did have some nausea and vomiting last night. She reports she did pass some flatus this morning. She has no nausea at the present time. Physical Exam Vital Signs: Temp Pulse Resp BP Pulse Ox 98.4 F 76 24 H 147/77 H 96 04/07/17 08:00 04/07/17 08:00 04/07/17 08:00 04/07/17 08:00 04/07/17 08:00 Intake & Output 04/06/17 04/07/17 04/08/17 06:59 06:59 06:59 Intake Total 2379 2374 Output Total 2505 1450 Balance -126 924 Weight 82.8 kg 83.6 kg Exam: Awake, alert, oriented Lungs: Clear bilaterally Cardiovascular: Regular rate Abdomen: Soft, nontender. Midline incision healing well without evidence of infection. Bowel sounds present but diminished. Results Laboratory Results: 04/05/17 06:38 04/05/17 06:38 Impressions: Limited or Localized CT 04/03/17 03:59 IMPRESSION: Free intraperitoneal air. Suggests perforated viscus. Fluid around the liver and generally in the pelvis. KUB X-Ray 04/03/17 10:01 IMPRESSION: Nasogastric tube tip in the stomach, side port at the GE junction Left upper quadrant Juan David-Lawson drain Grossly nonobstructive bowel gas pattern with moderate stool in the ascending colon Old gastric bypass and cholecystectomy Upper GI Series 04/06/17 08:00 IMPRESSION: No extravasation of contrast from the patient's gastric bypass anastomosis. No delayed gastric emptying. Assessment & Plan - Diagnosis (1) Perforated abdominal viscus Is this a current diagnosis for this admission?: Yes Plan: Status post jejunal perforation with primary repair. Upper GI revealed no evidence of leak or obstruction yesterday. She did develop some nausea vomiting last night. She has been on clear liquids. I will make her n.p.o. again and reassess tomorrow morning. Continue IV fluids. KUB this morning. Repeat laboratory studies this morning. She did have a fever yesterday midday but has been afebrile since that time. No evidence of leak on contrast study and the GALE drain has serosanguineous fluid.
[2017-04-07 11:03] LABS: ABSOLUTE EOSINOPHILS # (AUTO) 0.3 10^3/uL (0.0-0.6); ABSOLUTE MONOCYTES (AUTO) 0.7 10^3/uL (0.1-1.4); ABSOLUTE NEUT (AUTO) 7.6 10^3/uL (1.7-8.2); BASOPHILS % (AUTO) 0.5 % (0-2); EOSINOPHILS % (AUTO) 3.1 % (0-6); HEMATOCRIT 29.8 % (36.0-47.0); HEMOGLOBIN 9.7 g/dL (12.0-15.5); LYMPHOCYTES % (AUTO) 10.4 % (13-45); MEAN CORPUSCULAR HEMOGLOBIN 25.4 pg (27.0-33.4); MEAN CORPUSCULAR HGB CONC 32.6 g/dL (32.0-36.0); MEAN CORPUSCULAR VOLUME 78 fl (80-97); MONOCYTES % (AUTO) 6.8 % (3-13); PLATELET COUNT 224 10^3/uL (150-450); RED BLOOD COUNT 3.84 10^6/uL (3.72-5.28); SEGMENTED NEUTROPHILS % (AUTO) 79.2 % (42-78); TOTAL CELLS COUNTED % (AUTO) 100 %; WHITE BLOOD COUNT 9.6 10^3/uL (4.0-10.5)
[2017-04-07] MEDS: PROMETHAZINE HCL INJ 25 MG/1 ML VIAL IV PRN (11:08)
[2017-04-07 11:14] LABS: ALANINE AMINOTRANSFERASE 32 U/L (9-52); ALBUMIN 2.8 g/dL (3.5-5.0); ALKALINE PHOSPHATASE 70 U/L (38-126); ANION GAP 15 (5-19); ASPARTATE AMINO TRANSFERASE 16 U/L (14-36); BILIRUBIN,DIRECT 0.3 mg/dL (0.0-0.4); BILIRUBIN,TOTAL 0.4 mg/dL (0.2-1.3); BLOOD UREA NITROGEN 9 mg/dL (7-20); CALCIUM 8.4 mg/dL (8.4-10.2); CARBON DIOXIDE 18 mmol/L (22-30); CHLORIDE 110 mmol/L (98-107); GLUCOSE 89 mg/dL (75-110); POTASSIUM 3.4 mmol/L (3.6-5.0); SODIUM 142.8 mmol/L (137-145); TOTAL PROTEIN 5.2 g/dL (6.3-8.2)
[2017-04-07] MEDS ORDERED: ALPRAZOLAM 0.25 MG TABLET PO ONE (13:00)
[2017-04-07] MEDS: FAMOTIDINE INJ/PF 20 MG/2 ML SDV IV SCH ×2 (13:01→22:35)
[2017-04-07] MEDS: ENOXAPARIN SODIUM INJ 40 MG/0.4 ML DISP.SYRIN SUBCUT SCH (13:01)
[2017-04-07] MEDS: NORMAL SALINE 1000 ML 1,000 ML IV PRN (13:02)
--- NOTE | 2017-04-07 13:28 | RADIOLOGY REPORT (SQ) ---
EXAM DESCRIPTION: KUB/ABDOMEN (SINGLE VIEW) COMPLETED DATE/TIME: 04/07/2017 1:00 pm REASON FOR STUDY: s/p jejunal ulcer repair, N/V COMPARISON: 04/03/2017 NUMBER OF VIEWS: One view. TECHNIQUE: Supine radiographic image of the abdomen acquired. LIMITATIONS: None. FINDINGS: BOWEL GAS PATTERN: Nonobstructive gas pattern. Contrast is present in the colon. CALCIFICATIONS: No suspicious calcifications. SOFT TISSUES: No gross mass or suggestion of organomegaly. HARDWARE: Surgical clips and skin funmilayo. BONES: No acute fracture. No worrisome bone lesions. OTHER: No other significant finding. IMPRESSION: NO RADIOGRAPHIC EVIDENCE FOR ACUTE ABDOMINAL DISEASE. TECHNICAL DOCUMENTATION: JOB ID: [id number] [employer]- All Rights Reserved
[2017-04-07] MEDS ORDERED: ONDANSETRON HCL INJ/PF 4 MG/2 ML SDV IV PRN (15:25)
[2017-04-07] MEDS ORDERED: METOCLOPRAMIDE HCL INJ/PF 10 MG/2 ML SDV IV ONE (16:00)
[2017-04-08] MEDS: METRONIDAZOLE 500 MG/NS RTU 100 ML IV SCH ×5 (00:17→23:42)
[2017-04-08] MEDS: NORMAL SALINE 1000 ML 1,000 ML IV PRN (00:17)
[2017-04-08] MEDS: PROMETHAZINE HCL INJ 25 MG/1 ML VIAL IV PRN ×2 (03:12→22:12)
[2017-04-08] MEDS: LEVOFLOXACIN 750 MG/D5W RTU 750 MG/150 ML RTUPB IV SCH (05:30)
[2017-04-08] MEDS: KETOROLAC TROMETHAMINE INJ/PF 30 MG/1 ML SDV IV PRN (07:48)
--- NOTE | 2017-04-08 09:59 | PDOC PROGRESS REPORT ---
Subjective Progress Note for:: 04/08/17 Subjective:: Feels better. No nausea. Had a bowel movement yesterday. Hungry. Physical Exam Vital Signs: Temp Pulse Resp BP Pulse Ox 98.4 F 73 21 H 144/91 H 95 04/08/17 07:44 04/08/17 08:00 04/08/17 07:44 04/08/17 07:44 04/08/17 07:44 Intake & Output 04/07/17 04/08/17 04/09/17 06:59 06:59 06:59 Intake Total 2374 2211 Output Total 1450 1050 600 Balance 924 1161 -600 Weight 83.6 kg 84.1 kg General appearance: PRESENT: no acute distress, cooperative Respiratory exam: PRESENT: clear to auscultation danica Cardiovascular exam: PRESENT: RRR GI/Abdominal exam: PRESENT: other - Soft, nondistended, mild abdominal tenderness. Drain output is serosanguineous slightly turbid Results Laboratory Results: 04/07/17 10:45 04/07/17 10:45 04/07/17 04/07/17 10:45 10:45 WBC 9.6 RBC 3.84 Hgb 9.7 L Hct 29.8 L MCV 78 L MCH 25.4 L MCHC 32.6 RDW 17.0 H Plt Count 224 Seg Neutrophils % 79.2 H Lymphocytes % 10.4 L Monocytes % 6.8 Eosinophils % 3.1 Basophils % 0.5 Absolute Neutrophils 7.6 Absolute Lymphocytes 1.0 Absolute Monocytes 0.7 Absolute Eosinophils 0.3 Absolute Basophils 0.0 Sodium 142.8 Potassium 3.4 L Chloride 110 H Carbon Dioxide 18 L Anion Gap 15 BUN 9 Creatinine 0.54 Est GFR ( Amer) > 60 Est GFR (Non-Af Amer) > 60 Glucose 89 Calcium 8.4 Total Bilirubin 0.4 AST 16 ALT 32 Alkaline Phosphatase 70 Total Protein 5.2 L Albumin 2.8 L Impressions: Limited or Localized CT 04/03/17 03:59 IMPRESSION: Free intraperitoneal air. Suggests perforated viscus. Fluid around the liver and generally in the pelvis. Upper GI Series 04/06/17 08:00 IMPRESSION: No extravasation of contrast from the patient's gastric bypass anastomosis. No delayed gastric emptying. KUB X-Ray 04/07/17 00:00 IMPRESSION: NO RADIOGRAPHIC EVIDENCE FOR ACUTE ABDOMINAL DISEASE. Assessment & Plan - Diagnosis (1) Perforated abdominal viscus Is this a current diagnosis for this admission?: Yes Plan: Status post exploratory laparotomy and repair. Patient looks good this morning. Will start clear liquids. Transfer to the floor.
--- NOTE | 2017-04-08 11:18 | RADIOLOGY REPORT (SQ) ---
EXAM DESCRIPTION: VENOUS BILATERAL LOWER COMPLETED DATE/TIME: 04/08/2017 11:10 am REASON FOR STUDY: bilat leg pain and hx of DVT COMPARISON: None. TECHNIQUE: Dynamic and static lobo scale and color images acquired of both lower extremity venous sy stems. Selected spectral images acquired with additional compression and augmentation maneuvers. Imag es stored on PACS. LIMITATIONS: None. FINDINGS: RIGHT LEG COMMON FEMORAL AND FEMORAL: Normal phasicity, compression and augmentation. No visualized echogenic m aterial on lobo scale. No defects on color images. POPLITEAL: Normal compression and augmentation. No visualized echogenic material on lobo scale. No de fects on color images. CALF VESSELS: Normal compression and augmentation. No visualized echogenic material on lobo scale. No defects on color image. GSV AND SSV: Normal compression. No visualized echogenic material on lobo scale. No defects on color images. ANY DEEP VENOUS INSUFFICIENCY: Not evaluated. ANY EVIDENCE OF POPLITEAL CYST: No. OTHER: No other significant finding. LEFT LEG COMMON FEMORAL AND FEMORAL: Normal phasicity, compression and augmentation. No visualized echogenic m aterial on lobo scale. No defects on color images. POPLITEAL: Normal compression and augmentation. No visualized echogenic material on lobo scale. No de fects on color images. CALF VESSELS: Normal compression and augmentation. No visualized echogenic material on lobo scale. No defects on color images. GSV AND SSV: Normal compression. No visualized echogenic material on lobo scale. No defects on color images. ANY DEEP VENOUS INSUFFICIENCY: Not evaluated. ANY EVIDENCE POPLITEAL CYST: No. OTHER: No other significant finding. IMPRESSION: NO EVIDENCE DVT OR SVT IN EITHER LEG. TECHNICAL DOCUMENTATION: JOB ID: [id number] [employer]- All Rights Reserved
[2017-04-08] MEDS: FAMOTIDINE INJ/PF 20 MG/2 ML SDV IV SCH ×2 (12:25→22:12)
[2017-04-08] MEDS: ENOXAPARIN SODIUM INJ 40 MG/0.4 ML DISP.SYRIN SUBCUT SCH (12:25)
[2017-04-08] MEDS ORDERED: OXYCODONE-ACETAMINOPHEN 5-325 MG TABLET ONE (17:58)
[2017-04-09] MEDS: LEVOFLOXACIN 750 MG/D5W RTU 750 MG/150 ML RTUPB IV SCH (05:09)
[2017-04-09] MEDS: PROMETHAZINE HCL INJ 25 MG/1 ML VIAL IV PRN (06:15)
[2017-04-09] MEDS: OXYCODONE-ACETAMINOPHEN 5-325 MG TABLET PO PRN ×3 (06:15→21:39)
[2017-04-09] MEDS: METRONIDAZOLE 500 MG/NS RTU 100 ML IV SCH ×2 (06:15→12:00)
[2017-04-09] MEDS: ENOXAPARIN SODIUM INJ 40 MG/0.4 ML DISP.SYRIN SUBCUT SCH (09:57)
[2017-04-09] MEDS: FAMOTIDINE INJ/PF 20 MG/2 ML SDV IV SCH ×2 (09:57→21:38)
[2017-04-09] MEDS ORDERED: DIPHENHYDRAMINE HCL 50 MG/ML VIAL ONE (12:21)
--- NOTE | 2017-04-09 17:04 | PDOC PROGRESS REPORT ---
Subjective Progress Note for:: 04/09/17 Subjective:: Denies any abdominal pains Physical Exam Vital Signs: Temp Pulse Resp BP Pulse Ox 98.8 F 89 18 136/79 H 98 04/09/17 14:55 04/09/17 14:55 04/09/17 14:55 04/09/17 14:55 04/09/17 14:55 Intake & Output 04/08/17 04/09/17 04/10/17 06:59 06:59 06:59 Intake Total 2211 1260 800 Output Total 1050 1790 40 Balance 1161 -530 760 Weight 84.1 kg 81.1 kg Exam: Abdomen is soft and nontender dressings over her incision is clean and dry GALE drain has a small amount of serous drainage Results Laboratory Results: 04/07/17 10:45 04/07/17 10:45 04/03/17 15:55 Blood Blood Culture - Final NO GROWTH IN 5 DAYS 04/03/17 15:50 Blood Blood Culture - Final NO GROWTH IN 5 DAYS Impressions: Limited or Localized CT 04/03/17 03:59 IMPRESSION: Free intraperitoneal air. Suggests perforated viscus. Fluid around the liver and generally in the pelvis. Upper GI Series 04/06/17 08:00 IMPRESSION: No extravasation of contrast from the patient's gastric bypass anastomosis. No delayed gastric emptying. KUB X-Ray 04/07/17 00:00 IMPRESSION: NO RADIOGRAPHIC EVIDENCE FOR ACUTE ABDOMINAL DISEASE. Venous Doppler Study 04/08/17 00:00 IMPRESSION: NO EVIDENCE DVT OR SVT IN EITHER LEG. Assessment & Plan - Time Time Spent with patient: 15-24 minutes - Inpatient Certification Medical Necessity: Need For IV Fluids - Plan Summary Plan Summary: #1 increase to full liquid diet today 2. Possible DC drain tomorrow and increase diet as tolerated. 3. Possible discharge tomorrow 4. Since patient remains afebrile and white count has been normal the antibiotics can be discontinued
[2017-04-09] MEDS ORDERED: ONDANSETRON 4 MG TAB.RAPDIS PO PRN (17:20)
[2017-04-09] MEDS ORDERED: ONDANSETRON 4 MG TAB.RAPDIS ONE (17:21)
[2017-04-09] MEDS: DIPHENHYDRAMINE HCL 50 MG/ML VIAL IV SCH ×2 (17:26→21:43)
[2017-04-09] MEDS: AMOXICILLIN TRIHYDRATE 500 MG CAPSULE PO SCH (21:38)
[2017-04-09] MEDS: ERYTHROMYCIN BASE 250 MG TABLET PO SCH (21:42)
[2017-04-10] MEDS: DIPHENHYDRAMINE HCL 50 MG/ML VIAL IV SCH (05:00)
[2017-04-10] MEDS: OXYCODONE-ACETAMINOPHEN 5-325 MG TABLET PO PRN (08:32)
[2017-04-10] MEDS: AMOXICILLIN TRIHYDRATE 500 MG CAPSULE PO SCH (09:04)
[2017-04-10] MEDS: ERYTHROMYCIN BASE 250 MG TABLET PO SCH (09:04)
[2017-04-10] MEDS: FAMOTIDINE INJ/PF 20 MG/2 ML SDV IV SCH (09:04)
[2017-04-10] MEDS: ENOXAPARIN SODIUM INJ 40 MG/0.4 ML DISP.SYRIN SUBCUT SCH (09:09)
[2017-04-10 14:12] VITALS: BP 148/96
--- NOTE | 2017-05-07 09:39 | DISCHARGE SUMMARY E ---
Discharge Summary NAME: KEENA GOMEZ : 1975 AGE: 41Y ADMITTED: 04/03/2017 DISCHARGED: 04/10/2017 FINAL DIAGNOSIS: Perforation of marginal gastrojejunal ulcer post gastric bypass for obesity. PROCEDURE DONE: Repair of jejunal perforation ulcer with omental patch. ANESTHESIA: General. SURGEON: Dr. Friedman HOSPITAL COURSE: Patient had a NG tube in the ICU postoperatively. A Gastrografin x-ray through the NG tube was done on 04/06/17 which showed extravasation. Patient's NG tube was then removed and gradually restarted on liquids to soft diet. Patient able to tolerate soft diet on 04/10/17. Patient continued on Prevacid p.o. and patient to be followed up by her security screener in 2 weeks. Patient advised not to do any heavy lifting more than 15 pounds for the next 2 weeks. Patient to be followed up in the Surgical Clinic in 2 weeks. DICTATING PHYSICIAN: JAMAL FRIEDMAN M.D. [id number] PHY#: [id number] ID: [id number] JOB#: [id number] ACCT: [id number] cc:JAMAL FRIEDMAN M.D. >
--- NOTE | 2017-06-18 16:03 | Physician Advisory Note ---
Physician Advisor ProgressNote .: Pursuant to the plan for [facility], I have reviewed the medical record for this patient. Physician Advisor Statement: Sample DCSummary including what is needed for accurate coding and billing (as well as to be useful for any future physician looking up her past hx), available for attending to use to create official DCSummary with any changes he may find appropriate: (Points to include: all dx.s, reasons for all tests or tx.s that not every pt requires, "painting the picture" of how sick pt was & why they couldn't just go straight home after surgery. If recovery is slowed from average in any way, please state it.) Name: Toshia Hanley, [id number], [id number], 1975, age 41, Adm date 04/03/17, DC date 04/10/2017. Final Dx.s: 1. Perforation of marginal gastrojejunal ulcer post gastric bypass for obesity 2. Peritonitis due to #1 3. Anemia of Acute Blood Loss due to [perfd viscus?] Procedure done: Exploratory lap with Repair of jejunal perforation ulcer with omental patch. Surgeon: Dr. Friedman D/c Meds: Prevacid ___mg po q____ D/C follow-up appt: Surgical Clinic, 2 weeks. D/c Diet: soft diet (advance as tolerated? Or stay w/soft?) D/C Activity: no lifting anything >15 pounds for the next 2 wks. HOSPITAL COURSE: 41yo female with obesity and prior gastric bypass, HTN, hyperlipidemia, GERD, DVT, & kidney stones came to the ED for sudden onset severe left flank and left mid upper abdominal pain, with nausea. She was tachycardic and anemic, in severe distress. CT showed possible free air in the abdomen. She was given antibiotics, IVF, pain medicine. Decision was made to go urgently to surgery due to concern for perforated viscus. Intra-op, much purulent material was noted in the abdomen, which was suctioned out and cultured, eventually growing Staph aureus, Staph hominis, and Strep Mitis. Perforation was found, closed, and patched. Abdominal cavity was irrigated copiously. GALE drain was placed. Post-op, she was managed in ICU with IV Levaquin and naso-jejunal (or NG tube?) with slow return of bowel function. On 04/06/17, a Gastrografin x-ray through the NG tube showed no extravasation of contrast from the gastric bypass anastomosis. Patients NG/NJ tube was then removed and she was restarted on clear liquids, but she did not initially tolerate this, with a fever, N/V, and had to be kept on IVF, re-evaluated with KUB and labs). She was again tried on clear liquids on 04/08, and was then able to be gradually advanced to soft diet. BLE venous dopplers were done 04/08 because of leg pains, but were negative. On 04/09, she was doing well enough to change to po Amox and Emycin. As of , she was able to tolerate soft diet and go home. Hope you find this helpful. Any ?'s, text or call me. CK
--- NOTE | 2017-06-21 12:24 | DISCHARGE SUMMARY E ---
Discharge Summary NAME: KEENA GOMEZ : 1975 AGE: 41Y ADMITTED: 04/03/2017 DISCHARGED: 04/10/2017 PROCEDURE: On 04/03/2017, exploratory laparotomy, repair of perforated jejunal ulcer at the gastrojejunal junction with omental patch. HOSPITAL COURSE: This is a 41-year-old female post gastric bypass about 2 years ago. Patient complained of severe abdominal pains and left lung pains and CAT scan revealed free air in the abdomen. The patient then underwent exploratory laparotomy and found to have a perforated jejunal ulcer right at the gastric jejunal junction. This was then repaired and an omental patch placed over the repair site. Postoperatively, the patient is in the intensive care unit for a couple of days and then subsequently improved and an x-ray of the esophageal gastric area through an NG tube showed no extravasation and patient subsequently started on p.o. intake. NG tube was removed. Patient did well and discharged improved on 04/10/2017 with the above final diagnosis of perforated jejunal ulcer at the gastrojejunal junction. Patient advised not to do lifting for about 2 weeks of no more than 10-15 pounds. Patient to be followed up in the surgical clinic in 2 weeks. DICTATING PHYSICIAN: JAMAL WEATHERS M.D. [id number] Y#: [id number] ID: [id number] JOB#: [id number] ACCT: [id number] cc:JAMAL WEATHERS M.D. >
--- NOTE | 2017-06-21 13:49 | DISCHARGE SUMMARY E ---
Discharge Summary NAME: KEENA GOMEZ : 1975 AGE: 41Y ADMITTED: 04/03/2017 DISCHARGED: 04/10/2017 FINAL DIAGNOSES: 1. Perforation of marginal gastrojejunal ulcer, post gastric bypass for obesity. 2. Peritonitis due to #1. 3. Anemia of acute blood loss due to surgery for perforated viscus. PROCEDURE DONE: Exploratory laparotomy with repair of jejunal perforation ulcer with omental patch, date 04/03/2017. SURGEON: Dr. Friedman DISCHARGE MEDICATIONS: Prevacid 30 mg p.o. q.12 hours. DISCHARGE FOLLOWUP APPOINTMENTS: Surgical Clinic in 2 weeks. DISCHARGE DIET: Soft diet advanced to tolerated to regular. DISCHARGE ACTIVITY: No lifting anything more than 15 pounds for the next 2 weeks. HOSPITAL COURSE: This 41-year-old female with obesity and prior gastric bypass, hypertension, hyperlipidemia, GERD, DVT, and kidney stones came to the ED for sudden onset of severe left flank and left mid upper abdominal pain with nausea. She was tachycardiac and anemic in severe distress. CT showed free air in the abdomen. She was given IV antibiotics, IV fluids, and pain medications. Decision was made to go urgently to surgery due to consent for perforated viscus. Intraoperatively, much purulent material was noted in the abdomen, which was suctioned out and cultured, eventually growing Staph aureus, Staph hominis, and Strep mitis. Perforation was found, closed and patched. Abdominal cavity was irrigated copiously. GALE drain was placed. Postoperatively, she was managed in the intensive care unit with IV Levaquin and nasojejunal tube with slow return of bowel function. On 04/06/2017, Gastrografin x-ray through the nasojejunal tube showed no extravasation of contrast on the gastric bypass anastomosis. Patient's nasojejunal tube was then removed and she was restarted on clear liquids, but she did not initially tolerate this with a fever, nausea, vomiting and had to be kept on IV fluids. Reevaluated with KUB and labs. She was again tried on clear liquids on 04/08 and was then able to gradually advance to soft diet. Bilateral lower extremity venous Doppler were done on 04/08 because of leg pains but they were negative. On 04/09, she was doing well enough to change to amoxicillin ER and neomycin. As of 04/10/2017, she was able to tolerate soft diet and go home. DICTATING PHYSICIAN: JAMAL FRIEDMAN M.D. [id number] PHY#: [id number] ID: [id number] JOB#: [id number] ACCT: [id number] cc:JAMAL FRIEDMAN M.D. >
== END 2017-04-10 14:55 | disposition home or self-care (01) | DRG 329 ==
LOC: ER 03:24 → EH 06:42 → UNDOADMIN 06:42 → EH 09:43 → ICU 10:10 → EH 10:10 → 4N 04-08 15:16
PROVIDERS: ADMIT Surgery; ATTEND Surgery
PROC: 0DU907Z Supplement Duodenum with Autologous Tissue Substitute, Open Approach (ICD-10-PCS; principal; 2017-04-03 07:30)
DX: K28.5 Chronic or unspecified gastrojejunal ulcer with perforation (principal); K65.9 Peritonitis, unspecified; D62 Acute posthemorrhagic anemia; B95.61 Methicillin susceptible Staphylococcus aureus infection as the cause of diseases classified elsewhere; B95.4 Other streptococcus as the cause of diseases classified elsewhere; E78.5 Hyperlipidemia, unspecified; I10 Essential (primary) hypertension; K21.9 Gastro-esophageal reflux disease without esophagitis; Z90.49 Acquired absence of other specified parts of digestive tract; Z98.84 Bariatric surgery status; Z79.899 Other long term (current) drug therapy; Z88.0 Allergy status to penicillin; Z86.718 Personal history of other venous thrombosis and embolism; Z82.49 Family history of ischemic heart disease and other diseases of the circulatory system
CPT/HCPCS: 36415; 74000; 74247; 76380; 80048; 80053; 81001; 81025; 83690; 840; 84484; 85025; 85027; 86850; 86900; 86901; 87040; 87070; 87075; 87077; 87086; 87088; 87186; 87205; 93005; 93010; 93970; 94799; 96361; 96365; 96368; 96375; 99285; J0131; J0330; J1100; J1170; J1650; J1741; J1885; J1956; J2250; J2270; J2370; J2405; J2550; J2704; J2765; J3010; J3490; J7030; S0028; S0119

== ENCOUNTER → 2017-04-15 | Outpatient (CLI) | payer OTHER ==
[2017-04-15 15:24] LABS: APPEARANCE,URINE CLEAR; BILIRUBIN,URINE NEGATIVE (NEGATIVE); GLUCOSE, URINE NEGATIVE (NEGATIVE); KETONES,URINE NEGATIVE (NEGATIVE); LEUKOCYTE ESTERASE,URINE NEGATIVE (NEGATIVE); NITRITE,URINE NEGATIVE (NEGATIVE); PROTEIN,URINE NEGATIVE (NEGATIVE); URINE SPECIFIC GRAVITY 1.005; UROBILINOGEN,URINE NEGATIVE mg/dL (<2.0)
== END ==
LOC: OD 14:29
PROVIDERS: ATTEND Physician Assistant Surgical
DX: R35.0 Frequency of micturition (principal)
CPT/HCPCS: 81001

== ENCOUNTER 2019-01-13 17:47 | Emergency (ER) | payer SELFPAY ==
[2019-01-13 17:54] VITALS: BP 145/84
[2019-01-13] MEDS ORDERED: FAMOTIDINE INJ/PF 20 MG/2 ML SDV IV ONE (18:39)
[2019-01-13] MEDS ORDERED: DIPHENHYDRAMINE HCL 50 MG/ML VIAL IV ONE (18:39)
[2019-01-13] MEDS ORDERED: METHYLPREDNISOLONE INJ 125 MG/2 ML SDV IV ONE (18:39)
--- NOTE | 2019-01-13 18:41 | ER Document Report ---
ED Medical Screen (RME) - General Chief Complaint: Allergic Reaction Stated Complaint: POSSIBLE ALLERGIC REACTION Time Seen by Provider: 01/13/19 18:39 Primary Care Provider: NGUYỄN BELTRAN PA-C [Primary Care Provider] - Follow up as needed Mode of Arrival: Ambulatory Information source: Patient Notes: Patient states she was at [employer] and felt like something may have bit her on the wrist. Patient states that she then developed hives all over. Patient states she did have some difficulty breathing. Respirations even unlabored in triage. No angioedema. I have greeted and performed a rapid initial assessment of this patient. A comprehensive ED assessment and evaluation of the patient, analysis of test results and completion of the medical decision making process will be conducted by additional ED providers. TRAVEL OUTSIDE OF THE [place] IN LAST 30 DAYS: No - Related Data Allergies/Adverse Reactions: Penicillins Allergy (Severe, Verified 01/13/19 17:50) difficulting breathing, hives Past Medical History - Past Medical History Cardiac Medical History: Reports: Hx Hypercholesterolemia, Hx Hypertension Renal/ Medical History: Reports: Hx Kidney Stones. Denies: Hx Peritoneal Dial ysis GI Medical History: Reports: Hx Gastroesophageal Reflux Disease Past Surgical History: Reports: Hx Cholecystectomy, Hx Gastric Bypass Surgery - Immunizations Hx Diphtheria, Pertussis, Tetanus Vaccination: Yes History of Influenza Vaccine for 02/2017 - 07/2017 Season: Yes Influenza Administration Date for 02/2017 - 07/2017 Season: 02/28/17 Physical Exam - Vital signs Vitals: Temp Pulse Resp BP Pulse Ox 98.1 F 101 H 14 145/84 H 98 01/13/19 17:52 01/13/19 17:52 01/13/19 17:52 01/13/19 17:52 01/13/19 17:52 - General Notes: Urticarial rash to trunk and extremities, no potential airway compromise, no angioedema Course - Vital Signs Vital signs: Temp Pulse Resp BP Pulse Ox 98.1 F 101 H 14 145/84 H 98 01/13/19 17:52 01/13/19 17:52 01/13/19 17:52 01/13/19 17:52 01/13/19 17:52 Doctor's Discharge - Discharge Referrals: NGUYỄN BELTRAN PA-C [Primary Care Provider] - Follow up as needed
== END 2019-01-13 21:00 | disposition left against medical advice (07) ==
LOC: ER 17:47
DX: L50.0 Allergic urticaria (principal); E78.00 Pure hypercholesterolemia, unspecified; I10 Essential (primary) hypertension; Z88.0 Allergy status to penicillin; Z87.442 Personal history of urinary calculi; Z90.49 Acquired absence of other specified parts of digestive tract; Z98.84 Bariatric surgery status
CPT/HCPCS: 99281; 96374; 96375; J1200; J2930; S0028